=== PATIENT | female | born 1995 | race Caucasian/White ===

== ENCOUNTER 2017-11-27 10:20 | Day surgery (SDC) | payer BC ==
[~2017-11-27] VITALS: Ht 165.1 cm; Wt 85.0 kg
[2017-11-27 11:04] VITALS: BP 120/85; PULSE 115; TEMP 97.8
[2017-11-27] MEDS ORDERED: ZYRTEC 10MG10 MG PO (11:38)
[2017-11-27] MEDS ORDERED: HUMIRA40 MG/0.1 SQ (11:38)
[2017-11-27 14:01] VITALS: TEMP 98.2
[2017-11-27] MEDS ORDERED: NORCO 325 MG-51 TAB PO (14:13)
[2017-11-27] MEDS ORDERED: COLACE 100100 MG/CAP PO (14:14)
[2017-11-27] MEDS ORDERED: BACTRIM DS 8001 TAB PO (14:14)
[2017-11-27] MEDS ORDERED: MOTRIN 600600 MG/TAB PO (14:14)
[2017-11-27 14:20] VITALS: BP 109/78; PULSE 89
[2017-11-27 14:35] VITALS: BP 96/52; PULSE 75
[2017-11-27 14:50] VITALS: BP 110/75; PULSE 86
== END 2017-11-27 15:15 | disposition home or self-care (01) ==
LOC: SDCO 10:20
DX: L04.2 Acute lymphadenitis of upper limb (principal); J45.909 Unspecified asthma, uncomplicated; D64.9 Anemia, unspecified; Z83.3 Family history of diabetes mellitus; Z80.8 Family history of malignant neoplasm of other organs or systems
CPT/HCPCS: J0690; J1100; J1885; J2405; J2704; J3010; J7120

== ENCOUNTER → 2018-06-24 | Outpatient (CLI) | payer BC ==
[~2018-06-24] MED LIST: BACTRIM DS 8001 TAB PO; COLACE 100100 MG/CAP PO; HUMIRA40 MG/0.1 SQ; MOTRIN 600600 MG/TAB PO; NORCO 325 MG-51 TAB PO; ZYRTEC 10MG10 MG PO
== END ==
LOC: ZCOL.LAB 15:48
DX: L02.419 Cutaneous abscess of limb, unspecified (principal)